=== PATIENT | male | born 1965 | race Caucasian/White ===

== ENCOUNTER 2024-01-14 09:28 | Outpatient (OUT) | payer BC, SELFPAY ==
[2024-01-14 10:05] LABS: Basophils Percent Auto 0.6 % (0.2-2.0); Eosinophils Absolute Auto 0.1 10^3/uL (0.0-0.7); Eosinophils Percent Auto 2.3 % (0.9-7.0); Hematocrit 44.2 % (42.0-54.0); Hemoglobin 14.4 g/dL (14.0-18.0); Lymphocytes Absolute Auto 2.2 10^3/uL (1.2-3.8); Lymphocytes Percent Auto 41.3 % (20.5-60.0); Mean Corpuscular HGB Conc 32.6 g/dL (29.9-35.2); Mean Corpuscular Hemoglobin 29.1 pg (25.9-34.0); Mean Corpuscular Volume 89.3 fL (80.0-94.0); Mean Platelet Volume 8.9 fL (9.5-13.5); Monocytes Absolute Auto 0.3 10^3/uL (0.3-0.8); Monocytes Percent Auto 5.8 % (1.7-12.0); Neutrophils Absolute Auto 2.7 10^3/uL (1.4-6.5); Platelet Count 245 10^3/uL (150-450); Red Blood Count 4.95 10^6/uL (4.70-6.10); Red Cell Distribution Width 13.1 % (11.0-15.0); White Blood Count 5.3 10^3/uL (4.0-11.0)
[2024-01-14 10:35] LABS: Alanine Aminotransferase 31 U/L (16-63); Albumin Level 3.5 g/dL (3.4-5.0); Alkaline Phosphatase 90 U/L (46-116); Anion Gap 13.7; Aspartate Amino Transferase 14 U/L (15-37); BUN Creatinine Ratio 14.6; Bilirubin Total 0.7 mg/dL (0.2-1.0); Carbon Dioxide 26.2 mmol/L (21.0-32.0); Chloride 106 mmol/L (98-107); Chol HDL Ratio 3.1; Cholesterol 143 mg/dL (<=200); Estimated GFR (African America >60 (>=60); Estimated GFR (Non-African Ame >60 (>=60); Globulin 3.4 g/dL; Glucose 102 mg/dL (74-106); HDL Cholesterol 46 mg/dL (40-60); LDL Cholesterol Calculated 87.4 mg/dL; Potassium 3.9 mmol/L (3.5-5.1); Sodium 142 mmol/L (136-145); Total Protein 6.9 g/dL (6.4-8.2); Triglycerides 48 mg/dL (<=150); VLDL CHOLESTEROL 9.6 mg/dL
[2024-01-14 19:24] LABS: Prostate Specific Antigen Scrn 0.37 ng/mL (<=4.00)
== END 2024-01-14 09:29 | disposition home or self-care (01) ==
LOC: LAB 09:36
PROVIDERS: PCP Internal Medicine; Visit Provider Internal Medicine
DX: Z00.00 Encounter for general adult medical examination without abnormal findings (principal); Z12.5 Encounter for screening for malignant neoplasm of prostate
CPT/HCPCS: 36415; 80053; 80061; 85025; G0103

== ENCOUNTER 2025-01-16 09:14 | Outpatient (OUT) | payer OTHER, SELFPAY ==
[2025-01-16 09:42] LABS: Basophils Percent Auto 0.5 % (0.2-2.0); Eosinophils Absolute Auto 0.1 10^3/uL (0.0-0.7); Eosinophils Percent Auto 1.9 % (0.9-7.0); Hematocrit 46.5 % (42.0-54.0); Hemoglobin 15.3 g/dL (14.0-18.0); Immature Granulocytes Abs Auto 0.01 10^3/uL (0.00-0.03); Immature Granulocytes Pct Auto 0.2 % (0.0-0.5); Lymphocytes Absolute Auto 2.2 10^3/uL (1.2-3.8); Lymphocytes Percent Auto 35.8 % (20.5-60.0); Mean Corpuscular HGB Conc 32.9 g/dL (29.9-35.2); Mean Corpuscular Hemoglobin 29.3 pg (25.9-34.0); Mean Corpuscular Volume 89.1 fL (80.0-94.0); Mean Platelet Volume 9.3 fL (9.5-13.5); Monocytes Absolute Auto 0.4 10^3/uL (0.3-0.8); Monocytes Percent Auto 5.6 % (1.7-12.0); Neutrophils Absolute Auto 3.5 10^3/uL (1.4-6.5); Platelet Count 232 10^3/uL (150-450); Red Blood Count 5.22 10^6/uL (4.70-6.10); Red Cell Distribution Width 12.9 % (11.0-15.0); White Blood Count 6.2 10^3/uL (4.0-11.0)
[2025-01-16 10:06] LABS: Alanine Aminotransferase 22 U/L (16-63); Albumin Globulin Ratio 1.2; Albumin Level 3.8 g/dL (3.4-5.0); Alkaline Phosphatase 100 U/L (46-116); Anion Gap 11.7; Aspartate Amino Transferase 15 U/L (15-37); BUN Creatinine Ratio 13.3; Bilirubin Total 0.6 mg/dL (0.2-1.0); Calcium 8.9 mg/dL (8.5-10.1); Carbon Dioxide 29.3 mmol/L (21.0-32.0); Chloride 106 mmol/L (98-107); Chol HDL Ratio 2.9; Cholesterol 141 mg/dL (<=200); Estimated GFR (African America >60 (>=60 mL/min/1.73m^2); Estimated GFR (Non-African Ame >60 (>=60 mL/min/1.73m^2); Globulin 3.2 g/dL; Glucose 102 mg/dL (74-106); HDL Cholesterol 48 mg/dL (40-60); LDL Cholesterol Calculated 85.2 mg/dL; Sodium 143 mmol/L (136-145); Triglycerides 39 mg/dL (<=150); VLDL CHOLESTEROL 7.8 mg/dL
[2025-01-16 10:22] LABS: Prostate Specific Antigen Scrn 0.36 ng/mL (<=4.00)
== END 2025-01-16 09:15 | disposition home or self-care (01) ==
LOC: LAB 09:16
PROVIDERS: PCP Internal Medicine; Visit Provider Internal Medicine
DX: Z00.00 Encounter for general adult medical examination without abnormal findings (principal)
CPT/HCPCS: 36415; 80053; 80061; 85025; G0103

== ENCOUNTER 2025-09-06 11:41 | Outpatient (OUT) | payer OTHER, SELFPAY ==
--- NOTE | 2025-09-06 11:46 | XR_ITS ---
The [address] [address] Patient Name: SUNDAR GRULLON MRN: [id number] date: 1965 Sex: M Assigned Patient Location: RAD Current Patient Location: [facility] Accession/Order Number: [id number] Exam Date: 09/06/2025 12:03 Report Date: 09/06/2025 13:09 At the request of: JUDE HEBERT DO Procedure: XR sternum min 2V CLINICAL DATA: Midsternal chest pain for the past 6 months intermittently. No reported injury. PA AND LATERAL CHEST: COMPARISON: None There is no focal parenchymal consolidation, effusion or pneumothorax. The cardiac, hilar and mediastinal silhouettes are within normal limits. There is no vascular congestion. The visualized bony thorax is intact. There is minor endplate spurring. XR/XR chest 2V IMPRESSION: NO ACUTE CARDIOPULMONARY ABNORMALITY. STERNUM - 2 views COMPARISON: None Lateral and oblique views were obtained. No sternal fracture or bony destruction is noted. No surrounding soft tissue abnormalities are seen. IMPRESSION: NO ACUTE FINDINGS. Impression dictated by: Sheba Dutta M.D. 09/06/2025 1:09 PM Dictation Location: [facility] Electronically authenticated by: [id number] Y Date: 09/06/2025 13:09
--- NOTE | 2025-09-06 12:01 | XR_ITS ---
The [address] [address] Patient Name: SUNDAR GRULLON MRN: [id number] date: 1965 Sex: M Assigned Patient Location: [facility] Current Patient Location: [facility] Accession/Order Number: [id number] Exam Date: 09/06/2025 12:03 Report Date: 09/06/2025 13:09 At the request of: JUDE HEBERT DO Procedure: XR sternum min 2V CLINICAL DATA: Midsternal chest pain for the past 6 months intermittently. No reported injury. PA AND LATERAL CHEST: COMPARISON: None There is no focal parenchymal consolidation, effusion or pneumothorax. The cardiac, hilar and mediastinal silhouettes are within normal limits. There is no vascular congestion. The visualized bony thorax is intact. There is minor endplate spurring. XR/XR sternum min 2V IMPRESSION: NO ACUTE CARDIOPULMONARY ABNORMALITY. STERNUM - 2 views COMPARISON: None Lateral and oblique views were obtained. No sternal fracture or bony destruction is noted. No surrounding soft tissue abnormalities are seen. IMPRESSION: NO ACUTE FINDINGS. Impression dictated by: Sheba Dutta M.D. 09/06/2025 1:09 PM Dictation Location[facility] Electronically authenticated by: [id number] Y Date: 09/06/2025 13:09
== END 2025-09-06 11:42 | disposition home or self-care (01) ==
LOC: RAD 11:43
PROVIDERS: PCP Internal Medicine; Visit Provider Internal Medicine
DX: R07.9 Chest pain, unspecified (principal)
CPT/HCPCS: 71046; 71120